=== PATIENT | male | born 1980 | race Caucasian/White ===

== ENCOUNTER 2017-10-12 18:07 | Emergency (ER) | payer MEDICAID ==
[~2017-10-12] VITALS: Ht 167.6 cm; Wt 66.0 kg
[2017-10-12] MEDS ORDERED: LIDOCAINE 1%/EPI 1:100,000 10 ML VIAL IJ ONE (18:45)
[2017-10-12] MEDS ORDERED: TETANUS, DIPHTHERIA, PERTUSSIS VAC/PF 0.5ML (>7YR OLD) IM ONE (18:45)
[2017-10-12] MEDS ORDERED: BACITRACIN ZINC OINT UDPKT TOP ONE (18:45)
[2017-10-12 20:04] LABS: BASOPHILS % 0.6 % (0.0-2.0); EOSINOPHILS % 2.5 % (0.0-5.0); HEMATOCRIT. 43.6 % (42.0-52.0); HEMOGLOBIN. 15.5 g/dL (14.0-18.0); LYMPHOCYTES % 16.1 % (20.0-50.0); MEAN CORPUSCULAR HEMOGLOBIN 34.1 pg (28.0-32.0); MEAN CORPUSCULAR VOLUME 96.2 fL (80.0-94.0); MONOCYTES % 13.8 % (2.0-8.0); PLATELET 161 x1000/uL (130-400); RED BLOOD CELL COUNT 4.54 mill/uL (4.7-6.1); RED CELL DISTRIBUTION WIDTH 12.2 % (11.6-14.6)
[2017-10-12 20:07] LABS: CHLORIDE 104 mEq/L (98-107)
[2017-10-12 20:12] LABS: ETHANOL BLOOD < 10 mg/dL
[2017-10-12] MEDS ORDERED: CARBAMAZEPINE 100MG TABLET CHEW PO ONE (20:30)
[2017-10-12] MEDS ORDERED: QUETIAPINE FUMARATE 100MG TABLET PO SCH (20:30)
[2017-10-12] MEDS ORDERED: VALPROIC ACID 250MG CAPSULE PO ONE (20:30)
[2017-10-13 03:03] LABS: CLARITY URINE CLEAR (CLEAR); COLOR URINE YELLOW (YELLOW); KETONES URINE TRACE (NEGATIVE); LEUKOCYTE ESTERASE URINE NEGATIVE (NEGATIVE); NITRITE URINE NEGATIVE (NEGATIVE); OCCULT BLOOD URINE NEGATIVE (NEGATIVE); PH URINE 6.5 (4.5-8.0); PROTEIN URINE NEGATIVE (NEGATIVE); SPECIFIC GRAVITY URINE 1.026 (1.005-1.030)
[2017-10-13 03:35] LABS: OPIATES URINE SCREEN NEGATIVE (NEGATIVE)
[2017-10-13 03:36] LABS: *AMPHETAMINES SCREEN URINE NEGATIVE (NEGATIVE); *BENZODIAZEPINES SCREEN URINE NEGATIVE (NEGATIVE); *COCAINE SCREEN URINE NEGATIVE (NEGATIVE); CANNABINOID URINE SCREEN PRESUMTIVE POSITIVE (NEGATIVE); METHADONE URINE SCREEN NEGATIVE (NEGATIVE); PHENCYCLIDINE URINE SCREEN NEGATIVE (NEGATIVE)
[2017-10-13 03:37] LABS: *BARBITURATES SCREEN URINE NEGATIVE (NEGATIVE)
[2017-10-13] MEDS ORDERED: CARBAMAZEPINE 200MG TABLET PO SCH (09:00)
[2017-10-13] MEDS ORDERED: DIVALPROEX SODIUM 500MG DR TABLET PO ONE (09:00)
[2017-10-13] MEDS ORDERED: DIVALPROEX SODIUM 500MG DR TABLET PO SCH (13:15)
[2017-10-13 13:45] VITALS: BP 114/76
== END 2017-10-13 13:49 | disposition home or self-care (01) ==
LOC: ER 18:20
DX: S61.210A Laceration without foreign body of right index finger without damage to nail, initial encounter (principal); F31.9 Bipolar disorder, unspecified; F12.10 Cannabis abuse, uncomplicated; R45.851 Suicidal ideations; W25.XXXA Contact with sharp glass, initial encounter; Y93.89 Activity, other specified; Y92.89 Other specified places as the place of occurrence of the external cause; Y99.8 Other external cause status
CPT/HCPCS: 12001; 36415; 73140; 80053; 80305; 80307; 80329; 81003; 85025; 90471; 90715; 99285; G0482; J3490; Z7610

== ENCOUNTER 2019-12-01 10:47 | Emergency (ER) | payer MEDICAID ==
[~2019-12-01] VITALS: Ht 182.9 cm; Wt 68.0 kg
[2019-12-01] MEDS ORDERED: LIDOCAINE 1%/EPI 1:100,000 10 ML VIAL IJ ONE (11:45)
[2019-12-01] MEDS ORDERED: BACITRACIN ZINC OINT UDPKT TOP ONE (11:45)
[2019-12-01] MEDS ORDERED: ACETAMINOPHEN 325MG TABLET PO STA (11:53)
[2019-12-01 13:04] VITALS: BP 128/72
== END 2019-12-01 13:06 | disposition home or self-care (01) ==
LOC: ER 11:06
DX: S01.111A Laceration without foreign body of right eyelid and periocular area, initial encounter (principal); F31.9 Bipolar disorder, unspecified; H54.8 Legal blindness, as defined in USA; F12.10 Cannabis abuse, uncomplicated; Y04.0XXA Assault by unarmed brawl or fight, initial encounter; Y93.89 Activity, other specified; Y92.018 Other place in single-family (private) house as the place of occurrence of the external cause
CPT/HCPCS: 12011; 99283